=== PATIENT | male | born 1985 | race Caucasian/White ===

== ENCOUNTER 2016-07-28 23:00 | Emergency (ER) | payer MEDICAID ==
[~2016-07-28] VITALS: Ht 182.8 cm; Wt 78.0 kg
[~2016-07-28 23:00] MED LIST: ACYCLOVIR400 MG PO; ANAPROX DS550 MG PO; AUGMENTIN 875875 MG PO; BACTRIM DS 8001 TA1 PO; CEPHALEXIN500 M1 PO; CLINDAMYCIN HC300 MG PO; HYDROCODONE BIT1 T11 PO; MACROBID100 M1 PO; NKHM; PEN-VEE K500 MG PO; TRAMADOL HCL50 MG PO; VICODIN 5/500 505 MG PO; ZOFRAN ODT4 MG SL
[2016-07-28] MEDS ORDERED: Motrin,Rufen800 MG PO (23:23)
[2016-07-28] MEDS ORDERED: HYDROCODONE BIT1 T11 PO (23:23)
[2016-07-28] MEDS ORDERED: CLINDAMYCIN HC300 MG PO (23:23)
== END 2016-07-28 23:53 | disposition home or self-care (01) ==
LOC: ED 23:00
DX: K04.01 Reversible pulpitis (principal); K02.9 Dental caries, unspecified; F17.200 Nicotine dependence, unspecified, uncomplicated

== ENCOUNTER 2016-12-08 08:14 | Emergency (ER) | payer OTHER ==
[~2016-12-08] VITALS: Ht 411.4 cm; Wt 78.5 kg
[~2016-12-08 08:14] MED LIST changes: +Motrin,Rufen800 MG PO
[2016-12-08] MEDS ORDERED: HYDROCODONE BIT1 T11 PO (08:47)
[2016-12-08] MEDS ORDERED: Motrin,Rufen800 MG PO (08:47)
== END 2016-12-08 09:15 | disposition home or self-care (01) ==
LOC: ED 08:14
DX: S05.01XA Injury of conjunctiva and corneal abrasion without foreign body, right eye, initial encounter (principal); F17.200 Nicotine dependence, unspecified, uncomplicated; X58.XXXA Exposure to other specified factors, initial encounter; Y93.89 Activity, other specified; Y92.89 Other specified places as the place of occurrence of the external cause; Y99.9 Unspecified external cause status

== ENCOUNTER 2018-12-15 01:52 | Emergency (ER) | payer SELFPAY ==
[~2018-12-15] VITALS: Ht 182.8 cm; Wt 70.3 kg
[~2018-12-15 01:52] MED LIST changes: +AMOXICILLIN500 M2 PO; +Peridex 473 ML473 ML PO
[2018-12-15] MEDS ORDERED: Motrin,Rufen800 MG PO (02:23)
[2018-12-15] MEDS ORDERED: CLINDAMYCIN HC300 MG PO (02:23)
== END 2018-12-15 02:56 | disposition home or self-care (01) ==
LOC: ED 01:52
DX: K04.7 Periapical abscess without sinus (principal); K02.9 Dental caries, unspecified

== ENCOUNTER 2020-02-21 23:03 | Emergency (ER) | payer SELFPAY ==
[~2020-02-21] VITALS: Ht 182.8 cm; Wt 72.6 kg
[2020-02-21] MEDS ORDERED: ANAPROX DS550 MG PO (23:19)
[2020-02-21] MEDS ORDERED: CLINDAMYCIN HC300 MG PO (23:19)
== END 2020-02-21 23:57 | disposition home or self-care (01) ==
LOC: ED 23:03
DX: K04.7 Periapical abscess without sinus (principal); F31.9 Bipolar disorder, unspecified

== ENCOUNTER 2020-12-28 21:39 | Emergency (ER) | payer OTHER ==
[~2020-12-28] VITALS: Wt 62.6 kg
[2020-12-28 22:54] LABS: BASO % 0.1 % (0.0-1.0); HEMATOCRIT 43.8 % (42.0-52.0); LYMPH # 1.2 10*3/uL (1.3-4.4); LYMPH % 7.7 % (27.0-41.0); MEAN CELL VOLUME 85.9 fl (80.0-94.0); MEAN CORPUSCULAR HGB 30.2 pg (27.0-31.0); MEAN CORPUSCULAR HGB CONC 35.2 g/dl (33.0-37.0); MEAN PLATELET VOLUME 10.5 fl (9.6-12.3); MONO # 0.8 10*3/uL (0.1-1.0); MONO % 4.9 % (3.0-9.0); NEUT # 13.4 10*3/uL (2.3-7.9); NEUT % 86.9 % (47.0-73.0); PLATELET COUNT AUTOMATED 368 10*3/uL (130-400); RED CELL DISTRI WIDTH 12.4 % (0-14.5); WHITE BLOOD COUNT 15.4 10*3/uL (4.8-10.8)
[2020-12-28 23:09] LABS: ALBUMIN 4.5 gm/dl (3.1-4.5); ALKALINE PHOSPHATASE 99 U/L (45-117); BUN 21 mg/dl (7-24); CHLORIDE 99 mmol/L (98-107); CREATININE 0.92 mg/dL (0.70-1.30); LIPASE 51 U/L (73-393); POTASSIUM 3.4 mmol/L (3.5-5.1); SGOT/AST 16 IU/L (3-35); SGPT/ALT 25 U/L (12-78); SODIUM 136 mmol/L (136-145); TOTAL PROTEIN 8.8 gm/dL (6.4-8.2)
[2020-12-29] MEDS ORDERED: ZOFRAN4 MG PO (00:35)
[2020-12-29 00:42] LABS: BILIRUBIN 1+ (Negative); BLOOD 2+ (Negative); CLARITY Turbid (Clear); COLOR Orange (Yellow); GLUCOSE Negative (Negative); KETONE Negative (Negative); LEUKO ESTERASE Trace (Negative); NITRITE Positive (Negative); SPECIFIC GRAVITY >= 1.030 (1.001-1.030)
[2020-12-29 01:03] LABS: BACTERIA 1+
== END 2020-12-29 01:01 | disposition home or self-care (01) ==
LOC: ED 21:39
PROVIDERS: Physician Assistant
DX: K52.9 Noninfective gastroenteritis and colitis, unspecified (principal); R11.10 Vomiting, unspecified

== ENCOUNTER → 2021-08-28 | Outpatient (CLI) | payer OTHER ==
[~2021-08-28] MED LIST changes: +ZOFRAN4 MG PO
== END | disposition home or self-care (01) ==
LOC: COVID19 15:29
PROVIDERS: ATTEND Internal Medicine
DX: Z20.822 Contact with and (suspected) exposure to COVID-19 (principal)

== ENCOUNTER 2022-03-10 14:16 | Emergency (ER) | payer OTHER ==
[~2022-03-10] VITALS: Ht 182.8 cm; Wt 65.8 kg
[2022-03-11] MEDS ORDERED: AMOX-CLAV 875-1 EACH PO (18:20)
[2022-03-11] MEDS ORDERED: ONDANSETRON4 MG SL (18:20)
== END 2022-03-10 15:58 | disposition left against medical advice (07) ==
LOC: ED 14:16
DX: R10.9 Unspecified abdominal pain (principal); Z53.21 Procedure and treatment not carried out due to patient leaving prior to being seen by health care provider

== ENCOUNTER 2022-03-11 12:24 | Emergency (ER) | payer OTHER ==
[~2022-03-11] VITALS: Wt 66.7 kg
[2022-03-11 13:37] LABS: BASO % 0.2 % (0.0-1.0); EOS % 0.2 % (1.0-4.0); HEMATOCRIT 46.7 % (42.0-52.0); LYMPH # 1.8 10*3/uL (1.3-4.4); MEAN CELL VOLUME 83.2 fl (80.0-94.0); MEAN CORPUSCULAR HGB 30.7 pg (27.0-31.0); MEAN CORPUSCULAR HGB CONC 36.8 g/dl (33.0-37.0); MEAN PLATELET VOLUME 11.3 fl (9.6-12.3); MONO # 1.2 10*3/uL (0.1-1.0); MONO % 7.4 % (3.0-9.0); NEUT # 12.9 10*3/uL (2.3-7.9); NEUT % 80.8 % (47.0-73.0); PLATELET COUNT AUTOMATED 329 10*3/uL (130-400); RED BLOOD COUNT 5.61 10*6/uL (4.50-5.90); RED CELL DISTRI WIDTH 12.4 % (0-14.5)
[2022-03-11 14:40] LABS: ALKALINE PHOSPHATASE 100 U/L (45-117); BUN 58 mg/dl (7-24); CHLORIDE 92 mmol/L (98-107); CREATININE 2.44 mg/dL (0.70-1.30); LIPASE 77 U/L (73-393); POTASSIUM 3.9 mmol/L (3.5-5.1); SGOT/AST 49 IU/L (3-35); SGPT/ALT 38 U/L (12-78); SODIUM 129 mmol/L (136-145); TOTAL PROTEIN 9.6 gm/dL (6.4-8.2)
[2022-03-11 14:47] LABS: ETHYL ALCOHOL < 3.0 mg/dl (<3)
[2022-03-11 16:36] LABS: BILIRUBIN Negative (Negative); BLOOD 2+ (Negative); CLARITY Cloudy (Clear); COLOR Yellow (Yellow); GLUCOSE Negative (Negative); KETONE 1+ (Negative); LEUKO ESTERASE Negative (Negative); NITRITE Negative (Negative); SPECIFIC GRAVITY 1.025 (1.001-1.030)
[2022-03-11 16:45] LABS: URINE AMPHETAMINES < 1000 (1000ng/ml); URINE BARBITURATES < 200 (200ng/ml); URINE BENZODIAZEPINES < 200 (200ng/ml); URINE CANNABINOIDS (THC) > 50 (50ng/ml); URINE COCAINE < 300 (300ng/ml); URINE METHADONE < 300 (300ng/ml); URINE OPIATES < 300 (300ng/ml)
[2022-03-11 16:46] LABS: RBC 16-20 rbc/hpf (0-2)
[2022-03-11 16:47] LABS: BACTERIA 1+; COARSE GRANULAR CAST 0-2; FINE GRANULAR CAST 0-2; MUCOUS 2+
[2022-03-11 16:51] LABS: URINE PHENCYCLIDINE < 25 (25ng/ml)
[2022-03-11 17:55] LABS: CREATININE 1.66 mg/dL (0.70-1.30); POTASSIUM 4.3 mmol/L (3.5-5.1)
[2022-03-11] MEDS ORDERED: ONDANSETRON4 MG SL (18:20)
[2022-03-11] MEDS ORDERED: AMOX-CLAV 875-1 EACH PO (18:20)
== END 2022-03-11 18:34 | disposition home or self-care (01) ==
LOC: ED 12:24
PROVIDERS: Physician Assistant
DX: K52.9 Noninfective gastroenteritis and colitis, unspecified (principal); E86.0 Dehydration; R11.2 Nausea with vomiting, unspecified; Z79.899 Other long term (current) drug therapy

== ENCOUNTER 2022-10-21 06:25 | Emergency (ER) | payer OTHER ==
[~2022-10-21 06:25] MED LIST changes: +AMOX-CLAV 875-1 EACH PO; +ONDANSETRON4 MG SL
[2022-10-21 07:12] LABS: BASO # 0.1 10*3/uL (0.0-0.1); BASO % 0.5 % (0.0-1.0); EOS # 0.6 10*3/uL (0.0-0.4); EOS % 3.2 % (1.0-4.0); HEMATOCRIT 39.4 % (42.0-52.0); LYMPH # 2.8 10*3/uL (1.3-4.4); LYMPH % 15.6 % (27.0-41.0); MEAN CELL VOLUME 90.4 fl (80.0-94.0); MEAN CORPUSCULAR HGB 31.2 pg (27.0-31.0); MEAN CORPUSCULAR HGB CONC 34.5 g/dl (33.0-37.0); MEAN PLATELET VOLUME 10.6 fl (9.6-12.3); MONO # 1.5 10*3/uL (0.1-1.0); MONO % 8.2 % (3.0-9.0); NEUT # 12.8 10*3/uL (2.3-7.9); NEUT % 72.2 % (47.0-73.0); PLATELET COUNT AUTOMATED 286 10*3/uL (130-400); RED BLOOD COUNT 4.36 10*6/uL (4.50-5.90); WHITE BLOOD COUNT 17.8 10*3/uL (4.8-10.8)
[2022-10-21 07:49] LABS: ALKALINE PHOSPHATASE 83 U/L (46-116); BUN 20 mg/dl (9-23); CHLORIDE 108 mmol/L (98-107); LIPASE 32 U/L (12-53); POTASSIUM 3.8 mmol/L (3.4-5.1); SGPT/ALT 12 U/L (10-49); TOTAL PROTEIN 7.1 gm/dL (6.0-8.0)
[2022-10-21] MEDS ORDERED: PEPCID20 MG PO (09:47)
[2022-10-21] MEDS ORDERED: ONDANSETRON4 MG SL (09:47)
== END 2022-10-21 09:50 | disposition home or self-care (01) ==
LOC: ED 06:25
PROVIDERS: Emergency Medicine
DX: K59.00 Constipation, unspecified (principal); R11.2 Nausea with vomiting, unspecified

== ENCOUNTER 2023-01-28 14:43 | Emergency (ER) | payer OTHER ==
[~2023-01-28 14:43] MED LIST changes: +PEPCID20 MG PO
[2023-01-28 15:13] LABS: BASO # 0.1 10*3/uL (0.0-0.1); BASO % 0.5 % (0.0-1.0); EOS # 0.1 10*3/uL (0.0-0.4); EOS % 0.4 % (1.0-4.0); HEMATOCRIT 44.1 % (42.0-52.0); LYMPH # 2.3 10*3/uL (1.3-4.4); LYMPH % 15.1 % (27.0-41.0); MEAN CELL VOLUME 86.8 fl (80.0-94.0); MEAN CORPUSCULAR HGB 30.5 pg (27.0-31.0); MEAN CORPUSCULAR HGB CONC 35.1 g/dl (33.0-37.0); MEAN PLATELET VOLUME 10.3 fl (9.6-12.3); MONO # 0.7 10*3/uL (0.1-1.0); MONO % 4.4 % (3.0-9.0); NEUT # 12.3 10*3/uL (2.3-7.9); NEUT % 79.3 % (47.0-73.0); PLATELET COUNT AUTOMATED 303 10*3/uL (130-400); RED BLOOD COUNT 5.08 10*6/uL (4.50-5.90); RED CELL DISTRI WIDTH 12.7 % (0-14.5); WHITE BLOOD COUNT 15.5 10*3/uL (4.8-10.8)
[2023-01-28 15:23] LABS: ACT PARTIAL THROMBO TIME 24.1 SECONDS (20.0-32.1)
[2023-01-28 15:40] LABS: ALKALINE PHOSPHATASE 83 U/L (46-116); BUN 17 mg/dl (9-23); CHLORIDE 105 mmol/L (98-107); LIPASE 29 U/L (12-53); POTASSIUM 3.6 mmol/L (3.4-5.1); SGPT/ALT 16 U/L (10-49); TOTAL PROTEIN 8.3 gm/dL (6.0-8.0)
[2023-01-28 15:43] LABS: ETHYL ALCOHOL < 3.0 mg/dl (<3)
[2023-01-28 19:47] LABS: BILIRUBIN Negative (Negative); BLOOD 2+ (Negative); CLARITY Turbid (Clear); COLOR Orange (Yellow); GLUCOSE Negative (Negative); KETONE 3+ (Negative); LEUKO ESTERASE Trace (Negative); NITRITE Negative (Negative); PH 5.5 (4.5-8.0); SPECIFIC GRAVITY >= 1.030 (1.001-1.030)
[2023-01-28 19:54] LABS: BACTERIA 1+; EPITHELIAL CELLS 0-2; URINE AMPHETAMINES Negative (1000ng/ml); URINE BARBITURATES Negative (200ng/ml); URINE BENZODIAZEPINES Negative (200ng/ml); URINE CANNABINOIDS (THC) Positive (50ng/ml); URINE COCAINE Negative (300ng/ml); URINE METHADONE Negative (300ng/ml); URINE OPIATES Negative (300ng/ml); URINE PHENCYCLIDINE Negative (25ng/ml); WBC 0-2 wbc/hpf (0-5)
== END 2023-01-29 00:14 | disposition home or self-care (01) ==
LOC: ED 14:43
PROVIDERS: Emergency Medicine
DX: R11.11 Vomiting without nausea (principal); F12.10 Cannabis abuse, uncomplicated

== ENCOUNTER 2023-07-02 09:39 | Emergency (ER) | payer OTHER ==
[~2023-07-02] VITALS: Ht 182.8 cm; Wt 68.9 kg
[2023-07-02 10:05] LABS: BILIRUBIN Negative (Negative); BLOOD 1+ (Negative); CLARITY Clear (Clear); COLOR Yellow (Yellow); GLUCOSE Negative (Negative); KETONE Negative (Negative); LEUKO ESTERASE Negative (Negative); NITRITE Negative (Negative); PH 5.5 (4.5-8.0); UROBILINOGEN 0.2 E.U./dl (0.0-1.0)
[2023-07-02 10:25] LABS: BACTERIA TRACE; MUCOUS TRACE
== END 2023-07-02 10:58 | disposition home or self-care (01) ==
LOC: ED 09:39
PROVIDERS: Emergency Medicine
DX: R30.0 Dysuria (principal); F31.9 Bipolar disorder, unspecified; Z98.890 Other specified postprocedural states

== ENCOUNTER 2023-12-03 16:11 | Emergency (ER) | payer OTHER | END 2023-12-03 16:46 | disposition left against medical advice (07) | LOC: ED 16:11 | DX: Z04.3 Encounter for examination and observation following other accident (principal); Z53.21 Procedure and treatment not carried out due to patient leaving prior to being seen by health care provider ==

== ENCOUNTER 2023-12-24 15:10 | Emergency (ER) | payer OTHER ==
[~2023-12-24] VITALS: Ht 182.8 cm; Wt 70.8 kg
[2023-12-24] MEDS ORDERED: Ketorolac Tromethamine 30 MG/ML VIAL IM ONE (15:30)
[2023-12-24] MEDS ORDERED: methylPREDNISolone acetate 40 MG/ML VIAL IM ONE (15:30)
[2023-12-24] MEDS ORDERED: NAPROSYN500 MG PO (17:47)
[2023-12-24] MEDS ORDERED: ZANAFLEX4 MG PO (17:47)
[2023-12-24] MEDS ORDERED: MEDROL DOSEPAK4 MG PO (17:47)
== END 2023-12-24 17:55 | disposition home or self-care (01) ==
LOC: ED 15:10
DX: S16.1XXA Strain of muscle, fascia and tendon at neck level, initial encounter (principal); M25.512 Pain in left shoulder; M25.511 Pain in right shoulder; F31.9 Bipolar disorder, unspecified; Z98.890 Other specified postprocedural states; X58.XXXA Exposure to other specified factors, initial encounter; Y93.89 Activity, other specified; Y92.89 Other specified places as the place of occurrence of the external cause; Y99.8 Other external cause status

== ENCOUNTER 2024-10-15 00:55 | Emergency (ER) | payer OTHER ==
[~2024-10-15] VITALS: Ht 182.8 cm; Wt 79.8 kg
[~2024-10-15 00:55] MED LIST changes: +MEDROL DOSEPAK4 MG PO; +NAPROSYN500 MG PO; +ZANAFLEX4 MG PO
[2024-10-15] MEDS ORDERED: AMOXICILLIN500 M2 PO (01:46)
[2024-10-15] MEDS ORDERED: IBU600 M1 PO (01:46)
[2024-10-15] MEDS ORDERED: AMOXICILLIN 500 MG CAP PO ONE (01:50)
[2024-10-15] MEDS ORDERED: IBUPROFEN 600 MG TAB PO ONE (01:50)
== END 2024-10-15 01:59 | disposition home or self-care (01) ==
LOC: ED 00:55
DX: K04.7 Periapical abscess without sinus (principal); F17.200 Nicotine dependence, unspecified, uncomplicated; Z79.899 Other long term (current) drug therapy